=== PATIENT | female | born 1965 | race Caucasian/White ===

== ENCOUNTER 2023-02-15 09:00 | Outpatient (RCR) | payer OTHER, SELFPAY | END 2023-02-16 15:37 | disposition home or self-care (01) | PROVIDERS: PCP Family Medicine; Visit Provider Family Medicine | DX: M54.16 Radiculopathy, lumbar region (principal); M47.816 Spondylosis without myelopathy or radiculopathy, lumbar region; M51.36 Other intervertebral disc degeneration, lumbar region; M25.551 Pain in right hip; R26.2 Difficulty in walking, not elsewhere classified; Z51.89 Encounter for other specified aftercare | CPT/HCPCS: 97110; 97112; 97140; 97161; 97162; 97535 ==

== ENCOUNTER 2024-02-22 10:02 | Emergency (ER) | payer OTHER, SELFPAY ==
[2024-02-22 10:06] VITALS: BP 125/66; PULSE 88; RESP 16; TEMP 36.5; O2SAT 98; BMI 22.6
--- NOTE | 2024-02-22 10:27 | ED.WOUNDLAC ---
HPI - Wound/Laceration General Date Seen: 02/22/24 Chief Complaint: Laceration/Wound Stated Complaint: Lac L hand Time Seen by Provider: 02/22/24 10:19 Source: patient Mode of arrival: ambulatory Limitations: no limitations History of Present Illness HPI narrative: 58-year-old female who was out trimming her hedge is, she is right-hand dominant on lacerated her left index finger. 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 She has pain where it isn't was bleeding a fair bit but is slow down. She thinks she might need stitches and presents here to the emergency room she tells me she has no problems moving her fingers around. There is no numbness tingling, she has no history of immunosuppression, neurologic deficit. This just occurred a few minutes ago, her last tetanus was updated she tells me within the last 10 years. Did not take any medications for pain at home. Onset (ago): minute(s) (30) Location: other (Left hand index finger) Extremity Location: Left: hand Place: home Patient tetanus UTD: Yes Context: accidental Associated symptoms: none Treatments prior to arrival: bandage Related Data Home Medications Medication Instructions Recorded Confirmed citalopram 10 mg tablet 10 mg PO DAILY 02/22/24 02/22/24 levothyroxine 75 mcg tablet 75 mcg PO DAILY 02/22/24 02/22/24 Allergies Allergy/AdvReac Type Severity Reaction Status Date / Time No Known Drug Allergies Allergy Verified 02/22/24 10:12 Review of Systems Status of ROS: Reports: 6 or more systems reviewed and unremarkable except as noted in History and below PFSH PFS Social History Smoking Status: Former smoker Do you use any of these nicotine containing products: None How often do you have a drink containing alcohol: monthly or less AUDIT-C Alcohol total score: 1 Non-prescribed substance use: denies use Exam Narrative: Exam Narrative: On examination she is in absolutely no distress with normal vital signs. Speaking normally, seem slightly anxious which is appropriate. Good color, interacting normally. Examination of the left finger, her bandages removed. This shows a laceration between her PIP and MCP joint, on the palmar surface. It is approximately 4-5 cm in length, little bit jagged, and a v-shaped laceration. She has good movement of her extensors, with resistance abductors adductors are tested and normal of her left index finger. And her flexion of her PIP and the IP joint is normal she has grossly normal sensation noted over the distal part of her index finger, both on the radial and ulnar side. I discussed with her, we will give her some Tylenol, and I will on a numb the area up with 1% lidocaine without epinephrine. We will irrigated, her whole foreign bodies likely trim the wound injuring any some stitches, she is in agreement with this plan Const: Vital Signs, click to edit/add: Vital Signs - 24 hr 02/22/24 10:06 Temperature 97.7 F Pulse Rate [Right Pulse Oximeter] 88 Respiratory Rate 16 Blood Pressure [Ri ght Upper Arm] 125/66 Pulse Oximetry 98 Oxygen Delivery Me thod Room Air Documenting provider has reviewed patient's vital signs: yes Course Course ED Course: Lidocaine 1% was used x6 mL into the wound, this resulted in good anesthesia. Wound was a stellate laceration, there was some trimming of the wound edges done. To bring it together nicely. Deep exploration showed no evidence of a tendon laceration, there appeared to be no evidence of a foreign body, wound is irrigated out with 1 L of sterile water. Wound is closed with 6x 4-0 Ethilon sutures, this resulted in a looking better, there is some mild venous bleeding. This stopped. Bacitracin dry finger gauze dressing was applied, she was given a splint, on top of this to hold it in position of comfort. Patient tolerated well no complications estimated blood loss less than 5 mL. Post check showed normal vascular status, neuro status could not be checked because of the use of lidocaine Vital Signs Vital signs: Initial Vital Signs Temperature 97.7 F 02/22/24 10:06 Temperature Source Temporal Artery Scan 02/22/24 10:06 Pulse Rate 88 02/22/24 10:06 Pulse Rhythm Regular 02/22/24 10:06 Respiratory Rate 16 02/22/24 10:06 Blood Pressure 125/66 02/22/24 10:06 Blood Pressure Mean 85 02/22/24 10:06 Blood Pressure Position Supine 02/22/24 10:06 Pulse Oximetry 98 02/22/24 10:06 Oxygen Delivery Method Room Air 02/22/24 10:06 Vital Signs Temperature 97.7 F 02/22/24 10:06 Pulse Rate 88 02/22/24 10:06 Respiratory Rate 16 02/22/24 10:06 Blood Pressure 125/66 02/22/24 10:06 Pulse Oximetry 98 02/22/24 10:06 Oxygen Delivery Method Room Air 02/22/24 10:06 Temperature 97.7 F 02/22/24 10:06 Pulse Rate 88 02/22/24 10:06 Respiratory Rate 16 02/22/24 10:06 Blood Pressure 125/66 02/22/24 10:06 Pulse Oximetry 98 02/22/24 10:06 Oxygen Delivery Method Room Air 02/22/24 10:06 Medications Administered Medications: Discontinued Medications Generic Name Dose Route Start Last Admin Trade Name Yamilex PRN Reason Stop Dose Admin Acetaminophen 1,000 mg 02/22/24 10:23 02/22/24 10:34 Acetaminophen 500 Mg Tablet PO 02/22/24 10:24 1,000 mg ONCE ONE Administration MDM - Wound/Laceration MDM Narrative Medical decision making narrative: Discussed with the patient the risks benefits of laceration repair, chances of nerve damage, ligament damage, tendon damage, ongoing infection we him she accepts these. I will have her avoidance of using left hand as much as possible, with splint over the next 10 days Differential Diagnosis Differential diagnosis: Likely laceration, abrasion and avulsion of skin Medical Records Attestation: I reviewed the patient's medical records. Discharge Plan Discharge Clinical Impression: Laceration Patient Disposition: Home, Self-Care Condition: Stable Instructions: Finger Laceration (ED) Additional Instructions: Home rest please immobilize this for the next 5-7 days. I know that seems like a long time, but will improve the healing, decrease the chance of infection, showering is encouraged, but immersing and water should be avoided as much as possible daily bacitracin once her twice a day would be also excellent to try to prophylax for infection. I would suggest returning here if increasing pain fevers chills her swelling and redness which are all signs of infection. Sutures should come out in approximately 10-14 days. This can be done with when he your medical family members or of visit to see your primary care physician. return here if any further problems. Leave the gauze on for the next 24 hours, then you may remove it. And then use the finger splint, Prescriptions: No Action citalopram 10 mg tablet 10 mg PO DAILY levothyroxine 75 mcg tablet 75 mcg PO DAILY Follow Up/Referrals: Pamela Bonilla MD [Referring] - Stand Alone Forms: [facility] Info Instructions Procedures Laceration Laceration 1: Pre procedure diagnosis: Laceration to left index finger, Post procedure diagnosis: Laceration of left index finger no evidence of breach of the tendon Written consent by: patient Site marking: not applicable Verification/time out: correct patient and correct site Site: other (Finger) Side (If applicable): left Size (cm): 6 Description: stellate Depth: simple, single layer Local Anesthetic: lidocaine 1% Amount of anesthesia used (mL): 7 Pre-repair: wound explored, irrigated extensively, deep structures intact and wound margins revised Skin layer closed with: nylon Size (cm): 4-0 Number of sutures: 6 Technique: simple, interrupted Wound cleansing: sterile water Estimated blood loss (if any): less than 5mls Conclusion: patient tolerated procedure
[2024-02-22] MEDS: ACETAMINOPHEN 500 MG TABLET 1000 MG PO (10:34)
== END 2024-02-22 11:44 | disposition home or self-care (01) ==
PROVIDERS: Emergency Provider Family Medicine; PCP Family Medicine
DX: S61.211A Laceration without foreign body of left index finger without damage to nail, initial encounter (principal); W29.3XXA Contact with powered garden and outdoor hand tools and machinery, initial encounter
CPT/HCPCS: 12002; 99283; A9270

== ENCOUNTER 2024-10-10 14:30 | Outpatient (RCR) | payer OTHER, SELFPAY | END 2025-01-05 08:13 | disposition home or self-care (01) | PROVIDERS: PCP Family Medicine; Visit Provider Family Medicine | DX: M54.50 Low back pain, unspecified (principal); Z51.89 Encounter for other specified aftercare | CPT/HCPCS: 97110; 97112; 97140; 97161 ==